=== PATIENT | male | born 1970 | race Two or more races ===

== ENCOUNTER 2025-05-30 11:20 | Outpatient (OUT) | payer BC, SELFPAY ==
--- OUTSIDE RECORDS SUMMARY | 2025-05-30 11:30 | XMS_ITS | Clinical Summary ---
Author Organization [facility] Address [address] [place] [address] Phone Care Team Providers Care Sales Rep Name Role Phone Ji Echavarria DO Unavailable [phone] Allergies No known active allergies Medications MedicationSigDispense QuantityRefillsLast FilledStart DateEnd DateStatus aspirin 81 mg chewable tablet Chew and swallow 1 tablet (81 mg) once daily.5Active atorvastatin (Lipitor) 80 mg tablet Indications:Postsurgical percutaneous transluminal coronary angioplasty (PTCA) status,Acute ST elevation myocardial infarction (STEMI) due to occlusion of mid portion of left anterior descending (LAD) coronary artery (Multi)Take 1 tablet (80 mg) by mouth once daily in the evening. 90 tablet 3:14 PM EDT506Active losartan (Cozaar) 25 mg tablet Indications:Postsurgical percutaneous transluminal coronary angioplasty (PTCA) status,Acute ST elevation myocardial infarction (STEMI) due to occlusion of mid portion of left anterior descending (LAD) coronary artery (Multi)Take 1 tablet (25 mg) by mouth once daily in the morning. Take before meals. 90 tablet 506Active ticagrelor (Brilinta) 90 mg tablet Indications:Acute ST elevation myocardial infarction (STEMI) due to occlusion of mid portion of left anterior descending (LAD) coronary artery (Multi),Hx of myocardial infarction,History of percutaneous coronary interventionTake 1 tablet (90 mg) by mouth 2 times a day. 180 tablet 4:05 PM EDT506Active Active Problems ProblemNoted DateDiagnosed DateHx of myocardial eubmigxobn46/22/2025History of percutaneous coronary afrvxfxhblww29/22/2025ardiac hbllxk8710/06/2024MI 24.0- 24.9, adult10/06/2024Never smoked ojvtbne0110/06/2024Postsurgical percutaneous transluminal coronary angioplasty (PTCA) ngepqd8310/06/2024ute ST elevation myocardial infarction (STEMI) due to occlusion of mid portion of left anterior descending (LAD) coronary npgcka8510/06/2024 Immunizations ImmunizationAdministration DatesNext DueFlu vaccine (IIV4), preservative free *Check age/dose*06/03/2023Moderna COVID-19 vaccine, bivalent, blue cap/roth label *Check age/dose*04/10/2022fizer COVID-19 vaccine, 12 years and older, (30mcg/0.3mL) (Comirnaty)07/10/2023 Family History Medical HistoryRelationNameCommentsHypertensionFatherBreast cancerMotherRelation NameStatusCommentsFatherMother Social History Tobacco UseTypesPacks/DayYears UsedDateSmoking Tobacco: NeverSmokeless Tobacco: Never Tobacco Cessation:Counseling Given: Not Answered Alcohol UseStandard Drinks/WeekCommentsNever0 (1 standard drink = 0.6 oz pure alcohol)Sex and Gender InformationValueDate RecordedSex Assigned at BirthNot on fileLegal YsuJjzm20/26/2022 5:48 AM ESTGender IdentityNot on fileSexual OrientationNot on file Last Filed Vital Signs Vital SignReadingTime TakenCommentsBlood Nftwxqho026/6007 2:37 PM EDT Hpxpt704702/15/2025 2:37 PM EDTTemperature--Respiratory Rate--Oxygen Saturation-- Inhaled Oxygen Concentration--Todzqt49.1 kg (181 lb)02/15/2025 2:37 PM EDTHeight 182.9 cm (6')02/15/2025 2:37 PM EDTBody Mass Index24.5507 2:37 PM EDT Plan of Treatment DateTypeDepartmentCare Team (Latest Contact Info)Rikityvzuzj49/27/2026 3:00 PM ESTOffice Visit [facility] [address] [place] [phone] Ji Echavarria S, DO [address] [facility] [address] [place] [address] Health MaintenanceDue DateLast DoneCommentsCT Umrxjjykyggm1968Colonoscopy 1968Colorectal Cancer Mwpnzbyie1968FIT-DNA (Cologuard)1968FIT 1968HIV Cyeokswor1968Lipid Panel1968 6515Voxktmrkrhzxr1968 Yearly Adult Tejjsmql1968MMR Vaccines (1 of 1 - Standard series)1969 Diabetes Zcscwghni11/05/1986Hepatitis C Jviicmmuc61/05/1986Hepatitis B Vaccines (1 of 3 - 19+ 3-dose series)1987Pneumococcal Vaccine (1 of 2 - PCV) 1987DTaP/Tdap/Td Vaccines (1 - Tdap)1990PSA Prostate Cancer Pexatgwed63/05/2018Zoster Vaccines (1 of 2)2018Influenza Vaccine (#1) /3COVID-19 Vaccine ( season)/, 04/10/2022, 06/01/2021, Additional history existsHIB VaccinesAged OutNo longer eligible based on patient's age to complete this topicHPV VaccinesAged OutNo longer eligible based on patient's age to complete this topicHepatitis A VaccinesAged OutNo longer eligible based on patient's age to complete this topic IPV VaccinesAged OutNo longer eligible based on patient's age to complete this topicMeningococcal VaccineAged OutNo longer eligible based on patient's age to complete this topicRotavirus VaccinesAged OutNo longer eligible based on patient's age to complete this topic Insurance Care Teams Team MemberRelationshipSpecialtyStart DateEnd Date Ji Echavarria DO [address] [facility] [address] [place] [address] Consulting PhysicianCardiology09/28/24
--- OUTSIDE RECORDS SUMMARY | 2025-05-30 11:30 | XMS_ITS | Clinical Summary ---
Author Organization [facility] Address [address] [facility] [place] [address] Care Team Providers Care Oracle Forms Developer Name Role Phone Ludmila Carrington DO Unavailable [phone] Social History Tobacco UseTypesPacks/DayYears UsedDateSmoking Tobacco: Never AssessedSex and Gender InformationValueDate RecordedSex Assigned at BirthNot on fileLegal Sex Male09/21/2024 3:10 PM ESTGender IdentityNot on fileSexual OrientationNot on file Plan of Treatment Health MaintenanceDue DateLast DoneCommentsCT Zldqznrfohce1968Colonoscopy 1968FIT-DNA1968 6772Ajpdfmavpjjuy1968MMR Vaccines (1 of 1 - Standard series)1969DTaP/Tdap/Td Vaccines (1 - Tdap)1975Hepatitis B Vaccines (1 of 3 - 19+ 3-dose series)1987Colorectal Cancer Screening 02/11/2017FIT02/11/FOBT02/11/COVID-19 Vaccine ( season)/, 04/10/2022, 06/01/2021, Additional history existsInfluenza Vaccine (#1)5108/03/2022HIB VaccinesAged OutNo longer eligible based on patient's age to complete this topicHPV VaccinesAged OutNo longer eligible based on patient's age to complete this topicHepatitis A VaccinesAged OutNo longer eligible based on patient's age to complete this topic IPV VaccinesAged OutNo longer eligible based on patient's age to complete this topicMeningococcal B VaccineAged OutNo longer eligible based on patient's age to complete this topicMeningococcal VaccineAged OutNo longer eligible based on patient's age to complete this topicPneumococcal Vaccine: Pediatrics (0 to 5 Years) and At-Risk Patients (6 to 64 Years)Aged OutNo longer eligible based on patient's age to complete this topicRotavirus VaccinesAged OutNo longer eligible based on patient's age to complete this topic Insurance Care Teams Team MemberRelationshipSpecialtyStart DateEnd Date Ludmila Carrington DO [address] [place] [address] Referring PhysicianNeurology10/12/24
== END 2025-05-30 11:21 | disposition home or self-care (01) ==
PROVIDERS: Visit Provider Hospitalist
DX: Z00.00 Encounter for general adult medical examination without abnormal findings (principal)
CPT/HCPCS: 36415; 86317; 86480